=== PATIENT | male | born 1960 | race Two or more races ===

== ENCOUNTER 2019-07-20 10:49 | Observation (INO) | payer OTHER ==
[2019-07-20] MEDS ORDERED: ASPIRIN 81 MG PO STA (11:07)
[2019-07-20 11:27] LABS: Basophils % (A) 0 %; Eosinophils # (A) 0.1 k/uL (0-0.7); Eosinophils % (A) 2 %; HCT 45.4 % (39.0-53.0); HGB 14.9 gm/dL (13.0-17.5); Lymphocytes # (A) 1.4 k/uL (1.0-4.8); Lymphocytes % (A) 23 %; MCH 32.4 pg (25.0-35.0); MCHC 32.8 g/dL (31.0-37.0); MCV 98.9 fL (80.0-100.0); Mean Platelet Volume 7.9; Monocytes # (A) 0.3 k/uL (0-1.0); Monocytes % (A) 5 %; Neutrophils # (A) 4.1 k/uL (1.3-7.7); Neutrophils % (A) 68 %; Platelet Count 207 k/uL (150-450); RBC 4.59 m/uL (4.30-5.90); RDW 12.6 % (11.5-15.5)
--- NOTE | 2019-07-20 11:32 | ED ---
General Adult HPI - General Chief complaint: Chest Pain Stated complaint: chest pain Time Seen by Provider: 07/20/19 11:04 Source: patient Mode of arrival: ambulatory Limitations: no limitations - History of Present Illness Initial comments: Dictation was produced using [employer] dictation software. please excuse any grammatical, word or spelling errors. Chief Complaint: 59-year-old male with no known comorbidities presents with chest pain. History of Present Illness: 59-year-old male over the last 3-4 days patient has been having increased frequency of chest pain. Patient states over the last 3-4 days to have approximately 10 episodes that last for minutes. She reports that the pain is substernal squeezing in nature. States that sometimes the pain will radiate down to his left upper extremity. No associated diaphoresis. There is some times where he would experience some nausea and shortness of breath. Patient denies any symptoms at this time. He was convinced by his family member to come to the emergency department for medical evaluation. Patient has not seen a primary care physician. He does not know if he has any medical problems. He does not take any medications. He is a daily tobacco user. The ROS documented in this emergency department record has been reviewed and confirmed by me. Those systems with pertinent positive or negative responses have been documented in the HPI. All other systems are other negative and/or noncontributory. PHYSICAL EXAM: General Impression: Alert and oriented x3, not in acute distress HEENT: Normocephalic atraumatic, extra-ocular movements intact, pupils equal and reactive to light bilaterally, mucous membranes moist. Cardiovascular: Heart regular rate and rhythm, S1&S2 audible, no murmurs, rubs or gallops Chest: Lungs clear to auscultation bilaterally, no rhonchi, no wheeze, no rales Abdomen: Bowel sounds present, abdomen soft, non-tender, non-distended, no organomegaly Musculoskeletal: Pulses present and equal in all extremities, no peripheral edema Motor: no focal deficits noted Neurological: CN II-XII grossly intact, no focal motor or sensory deficits noted Skin: Intact with no visualized rashes Psych: Normal affect and mood ED course: 59-year-old male presents with chest pain symptoms concerning for acute coronary syndrome. Patient denies any chest pain symptoms at this time. Vital signs upon arrival are within acceptable limits. EKG merely performed on upon arrival shows no signs of ST segment elevation myocardial infarction.Laboratory evaluation obtained. CBC, coag panel, metabolic panel is obtained. Cardiac enzymes negative. Chest x-ray shows no acute processes. There is however some degree of enlarged cardiomediastinal silhouette without any comparison for stability. Patient reevaluated bedside without any chest pain symptoms currently. Patient be admitted observation for surgical and cardiology consultation. EKG interpretation: Ventricular rate 74, normal sinus rhythm, MD interval 140, care is 96, QTC 435. No MD prolongation, no QTC prolongation, no ST or T-wave changes noted. Overall, this EKG is unremarkable - Related Data Home Medications Medication Instructions Recorded Confirmed No Known Home Medications 07/20/19 07/20/19 Allergies Allergy/AdvReac Type Severity Reaction Status Date / Time nitroglycerin AdvReac syncopal Verified 07/20/19 11:30 episode Review of Systems ROS Statement: Those systems with pertinent positive or pertinent negative responses have been documented in the HPI. ROS Other: All systems not noted in ROS Statement are negative. Past Medical History Past Medical History: No Reported History History of Any Multi-Drug Resistant Organisms: None Reported Additional Past Surgical History / Comment(s): facial reconstrucive surgery Past Psychological History: Anxiety, Bipolar Smoking Status: Current every day smoker Past Alcohol Use History: None Reported Past Drug Use History: None Reported General Exam Limitations: no limitations Course Vital Signs 07/20/19 07/20/19 07/20/19 10:49 11:00 11:19 Temperature 97.6 F Pulse Rate 78 76 81 Respiratory 18 18 18 Rate Blood Pressure 128/83 134/101 125/81 O2 Sat by Pulse 100 98 Oximetry 07/20/19 11:56 Temperature Pulse Rate 80 Respiratory 20 Rate Blood Pressure 131/80 O2 Sat by Pulse 97 Oximetry Medical Decision Making - Lab Data Result diagrams: 07/20/19 11:10 07/20/19 11:10 Lab Results 07/20/19 07/20/19 07/20/19 Range/Units 11:10 11:10 11:10 WBC 6.0 (3.8-10.6) k/uL RBC 4.59 (4.30-5.90) m/uL Hgb 14.9 (13.0-17.5) gm/dL Hct 45.4 (39.0-53.0) % MCV 98.9 (80.0-100.0) fL MCH 32.4 (25.0-35.0) pg MCHC 32.8 (31.0-37.0) g/dL RDW 12.6 (11.5-15.5) % Plt Count 207 (150-450) k/uL Neutrophils % 68 % Lymphocytes % 23 % Monocytes % 5 % Eosinophils % 2 % Basophils % 0 % Neutrophils # 4.1 (1.3-7.7) k/uL Lymphocytes # 1.4 (1.0-4.8) k/uL Monocytes # 0.3 (0-1.0) k/uL Eosinophils # 0.1 (0-0.7) k/uL Basophils # 0.0 (0-0.2) k/uL PT 9.6 (9.0-12.0) sec INR 0.9 (<1.2) APTT 22.9 (22.0-30.0) sec Sodium 136 L (137-145) mmol/L Potassium 4.0 (3.5-5.1) mmol/L Chloride 104 (98-107) mmol/L Carbon Dioxide 21 L (22-30) mmol/L Anion Gap 11 mmol/L BUN 16 (9-20) mg/dL Creatinine 0.88 (0.66-1.25) mg/dL Est GFR (CKD-EPI)AfAm >90 (>60 ml/min/1.73 sqM) Est GFR (CKD-EPI)NonAf >90 (>60 ml/min/1.73 sqM) Glucose 228 H (74-99) mg/dL Calcium 9.0 (8.4-10.2) mg/dL Magnesium 1.9 (1.6-2.3) mg/dL Total Bilirubin 0.6 (0.2-1.3) mg/dL AST 29 (17-59) U/L ALT 19 (4-49) U/L Alkaline Phosphatase 51 (38-126) U/L Troponin I (0.000-0.034) ng/mL Total Protein 6.7 (6.3-8.2) g/dL Albumin 3.8 (3.5-5.0) g/dL Lipase 136 (23-300) U/L 07/20/19 Range/Units 11:10 WBC (3.8-10.6) k/uL RBC (4.30-5.90) m/uL Hgb (13.0-17.5) gm/dL Hct (39.0-53.0) % MCV (80.0-100.0) fL MCH (25.0-35.0) pg MCHC (31.0-37.0) g/dL RDW (11.5-15.5) % Plt Count (150-450) k/uL Neutrophils % % Lymphocytes % % Monocytes % % Eosinophils % % Basophils % % Neutrophils # (1.3-7.7) k/uL Lymphocytes # (1.0-4.8) k/uL Monocytes # (0-1.0) k/uL Eosinophils # (0-0.7) k/uL Basophils # (0-0.2) k/uL PT (9.0-12.0) sec INR (<1.2) APTT (22.0-30.0) sec Sodium (137-145) mmol/L Potassium (3.5-5.1) mmol/L Chloride (98-107) mmol/L Carbon Dioxide (22-30) mmol/L Anion Gap mmol/L BUN (9-20) mg/dL Creatinine (0.66-1.25) mg/dL Est GFR (CKD-EPI)AfAm (>60 ml/min/1.73 sqM) Est GFR (CKD-EPI)NonAf (>60 ml/min/1.73 sqM) Glucose (74-99) mg/dL Calcium (8.4-10.2) mg/dL Magnesium (1.6-2.3) mg/dL Total Bilirubin (0.2-1.3) mg/dL AST (17-59) U/L ALT (4-49) U/L Alkaline Phosphatase (38-126) U/L Troponin I <0.012 (0.000-0.034) ng/mL Total Protein (6.3-8.2) g/dL Albumin (3.5-5.0) g/dL Lipase (23-300) U/L Disposition Clinical Impression: Chest pain Disposition: ADMITTED IP TO THIS [facility] Condition: Fair Referrals: None,Stated [Primary Care Provider] - 1-2 days Decision Time: 13:51
[2019-07-20 11:35] LABS: ALT 19 U/L (4-49); AST 29 U/L (17-59); African American GFR (CKD) >90 (>60 ml/min/1.73 sqM); Albumin 3.8 g/dL (3.5-5.0); Alkaline Phosphatase 51 U/L (38-126); Anion Gap 11 mmol/L; Blood Urea Nitrogen 16 mg/dL (9-20); Carbon Dioxide 21 mmol/L (22-30); Chloride 104 mmol/L (98-107); Glucose 228 mg/dL (74-99); Magnesium 1.9 mg/dL (1.6-2.3); Non-African American GFR(CKD) >90 (>60 ml/min/1.73 sqM); Sodium 136 mmol/L (137-145); Total Bilirubin 0.6 mg/dL (0.2-1.3); Total Protein 6.7 g/dL (6.3-8.2)
[2019-07-20 11:38] LABS: INR 0.9 (<1.2); Partial Thromboplastin Time 22.9 sec (22.0-30.0); Prothrombin Time 9.6 sec (9.0-12.0)
--- NOTE | 2019-07-20 11:55 | XR ---
EXAMINATION TYPE: XR chest 2V DATE OF EXAM: 07/20/2019 COMPARISON: NONE HISTORY: Chest pain. History of AR TECHNIQUE: Frontal and lateral views of the chest are obtained. FINDINGS: There is no focal air space opacity, pleural effusion, or pneumothorax seen. There is tort uosity of the thoracic aorta and mildly enlarged cardiomediastinal silhouette. The osseous structur es are intact. IMPRESSION: No acute pulmonary process. Mildly enlarged cardiomediastinal silhouette, no priors for comparison of stability.
[2019-07-20 15:04] VITALS: RESP 18
[2019-07-20 15:56] VITALS: BP 118/78; PULSE 62; TEMP 97.4
[2019-07-21] MEDS ORDERED: ASPIRIN 325 MG TAB PO SCH (09:00)
--- NOTE | 2019-07-21 23:40 | HP ---
HISTORY AND PHYSICAL CHIEF COMPLAINT: Chest pain. HISTORY OF PRESENT ILLNESS: The patient presented to the emergency room with chest pain which was fairly typical for angina. He was evaluated and admitted. Review of systems, past medical history, family history, and personal and social history could not be obtained. He signed out AMA. PHYSICAL EXAMINATION: Any details of his physical exam would come from the emergency room. He left before he was seen. DIAGNOSIS: Chest pain. PLAN: Would have been to do serial cardiac enzymes and EKGs with cardiac evaluation. MMODL / IJN: [id number] /
--- NOTE | 2019-07-22 12:44 | DS ---
DISCHARGE SUMMARY CHIEF COMPLAINT: Chest pain. HISTORY OF PRESENT ILLNESS AND PHYSICAL EXAM: Details of this man's history and physical can be found in his admitting summary but are incomplete because he signed out before he was seen. COURSE IN THE HOSPITAL: After he was admitted, he was only in the room a short period of time when he suddenly disappeared. FINAL DIAGNOSIS: Chest pain. OPERATIONS: None. CONSULTATIONS: None. KATHLEEN / JUSTIN: [id number] /
== END 2019-07-20 18:27 | disposition left against medical advice (07) ==
LOC: EC 10:49 → 1SOBS 13:43
PROVIDERS: ADMIT Family Medicine; ATTEND Family Medicine
DX: R07.9 Chest pain, unspecified (principal); F41.9 Anxiety disorder, unspecified; F31.9 Bipolar disorder, unspecified; F17.200 Nicotine dependence, unspecified, uncomplicated; Z53.29 Procedure and treatment not carried out because of patient's decision for other reasons; Z88.8 Allergy status to other drugs, medicaments and biological substances
CPT/HCPCS: 99285; 36415; 93005; 80053; 83690; 83735; 84484; 85025; 85610; 85730; 71046; G0378

== ENCOUNTER 2020-08-09 17:04 | Observation (INO) | payer OTHER ==
--- NOTE | 2020-08-09 17:10 | ED ---
General Adult HPI - General Chief complaint: Chest Pain Stated complaint: Chest pain Source: patient Mode of arrival: ambulatory Limitations: no limitations - History of Present Illness Initial comments: Patient presents the ED with his son for evaluation. Patient states that he developed left sided chest pain and dyspnea while at rest about an hour ago. Patient states that his symptoms began after he had a conversation with his father, which "didn't go well". Patient states that he feels very anxious, and he states that he has a history of anxiety. Patient states that he feels that his anxiety is contributing to his symptoms. Patient states that his pain is worse with inspiration. Patient denies trauma or injury, radiation of his pain, fever or chills, headache, focal numbness/weakness/neuro deficit, neck/arm/jaw/back pain, cough or cold symptoms, palpitations, dizziness, abdominal pain, nausea/vomiting/diarrhea, dysuria or urinary symptoms, leg or calf swelling or pain, or any other symptoms or complaints. Patient states that he took aspirin 325 mg PO prior to coming to the ED this evening. - Related Data Home Medications Medication Instructions Recorded Confirmed No Known Home Medications 07/20/19 07/20/19 Allergies Allergy/AdvReac Type Severity Reaction Status Date / Time nitroglycerin AdvReac syncopal Verified 08/09/20 17:06 episode Review of Systems ROS Statement: Those systems with pertinent positive or pertinent negative responses have been documented in the HPI. ROS Other: All systems not noted in ROS Statement are negative. Past Medical History Past Medical History: Hyperlipidemia, Myocardial Infarction (NM) Additional Past Medical History / Comment(s): cocaine induced NM, history of hep C- completed treatment. History of Any Multi-Drug Resistant Organisms: None Reported Additional Past Surgical History / Comment(s): facial reconstrucive surgery, Past Psychological History: Anxiety, Bipolar Smoking Status: Current every day smoker Past Alcohol Use History: None Reported Past Drug Use History: Cocaine General Exam Limitations: no limitations General appearance: alert, anxious Head exam: Present: atraumatic, normocephalic Eye exam: Present: normal appearance, EOMI ENT exam: Present: mucous membranes moist Neck exam: Present: other (Trachea is in midline) Respiratory exam: Present: normal lung sounds bilaterally. Absent: respiratory distress, wheezes, rales, rhonchi, stridor, chest wall tenderness Cardiovascular Exam: Present: regular rate, normal rhythm, normal heart sounds, other (Normal radial pulses bilaterally) GI/Abdominal exam: Present: soft. Absent: distended, tenderness, guarding Extremities exam: Present: other (Negative Homans sign bilaterally). Absent: tenderness, pedal edema, calf tenderness Neurological exam: Present: alert, oriented X3. Absent: motor sensory deficit Psychiatric exam: Present: anxious Skin exam: Present: warm, dry, intact, normal color Course Vital Signs 08/09/20 08/09/20 08/09/20 17:05 17:19 18:50 Temperature 98.0 F Pulse Rate 82 73 Pulse Rate [ 89 Compressor Repairer ] Respiratory 18 20 16 Rate Blood Pressure 133/78 140/87 O2 Sat by Pulse 97 97 Oximetry - Reevaluation(s) Reevaluation #1: 08/09/20 19:40 Patient states that his chest pain/symptoms have now improved, and he states that he feels much better. Patient denies development of any new symptoms while in the ED. Patient remains alert and breathing comfortably with a normal room air oxygen saturation. Patient and son are aware the patient's test results, and they both agree with hospital admission at this time. 08/09/20 20:10 Case, H&P, test results and ED management thus far were discussed with Dr. Meier. He accepts hospital admission. He recommends cardiology consultation. He has no further recommendations at this time. EKG Findings - EKG Comments: EKG Findings:: Normal sinus rhythm, ventricular rate of 75 bpm, normal SC and QRS intervals, normal QT interval, normal axis, incomplete right bundle branch block, left anterior fascicular block, no ST or T-wave abnormality Medical Decision Making - Medical Decision Making Patient's chest pain has improved while in the ED. Patient's CT angiography chest is negative for pulmonary embolism. Patient's troponin is negative. Patient's EKG does not show any acute ischemic findings. Will admit the patient to the hospital for further evaluation and cardiac monitoring. Dr. Meier has accepted hospital admission. - Lab Data Result diagrams: 08/09/20 17:25 08/09/20 17:25 Lab Results 08/09/20 08/09/20 08/09/20 Range/Units 17:25 17:25 17:25 WBC 8.5 (3.8-10.6) k/uL RBC 4.75 (4.30-5.90) m/uL Hgb 15.8 (13.0-17.5) gm/dL Hct 46.2 (39.0-53.0) % MCV 97.3 (80.0-100.0) fL MCH 33.2 (25.0-35.0) pg MCHC 34.1 (31.0-37.0) g/dL RDW 12.1 (11.5-15.5) % Plt Count 204 (150-450) k/uL MPV 7.5 Neutrophils % 68 % Lymphocytes % 16 % Monocytes % 10 % Eosinophils % 4 % Basophils % 1 % Neutrophils # 5.8 (1.3-7.7) k/uL Lymphocytes # 1.4 (1.0-4.8) k/uL Monocytes # 0.9 (0-1.0) k/uL Eosinophils # 0.3 (0-0.7) k/uL Basophils # 0.1 (0-0.2) k/uL PT 9.5 (9.0-12.0) sec INR 0.9 (<1.2) APTT 23.6 (22.0-30.0) sec D-Dimer 0.60 H (<0.60) mg/L FEU Sodium 137 (137-145) mmol/L Potassium 4.3 (3.5-5.1) mmol/L Chloride 103 (98-107) mmol/L Carbon Dioxide 26 (22-30) mmol/L Anion Gap 8 mmol/L BUN 16 (9-20) mg/dL Creatinine 1.23 (0.66-1.25) mg/dL Est GFR (CKD-EPI)AfAm 74 (>60 ml/min/1.73 sqM) Est GFR (CKD-EPI)NonAf 64 (>60 ml/min/1.73 sqM) Glucose 93 (74-99) mg/dL Calcium 9.1 (8.4-10.2) mg/dL Magnesium 2.0 (1.6-2.3) mg/dL Total Bilirubin 0.4 (0.2-1.3) mg/dL AST 20 (17-59) U/L ALT 21 (4-49) U/L Alkaline Phosphatase 61 (38-126) U/L Troponin I (0.000-0.034) ng/mL NT-Pro-B Natriuret Pep pg/mL Total Protein 7.2 (6.3-8.2) g/dL Albumin 4.2 (3.5-5.0) g/dL 08/09/20 08/09/20 Range/Units 17:25 17:25 WBC (3.8-10.6) k/uL RBC (4.30-5.90) m/uL Hgb (13.0-17.5) gm/dL Hct (39.0-53.0) % MCV (80.0-100.0) fL MCH (25.0-35.0) pg MCHC (31.0-37.0) g/dL RDW (11.5-15.5) % Plt Count (150-450) k/uL MPV Neutrophils % % Lymphocytes % % Monocytes % % Eosinophils % % Basophils % % Neutrophils # (1.3-7.7) k/uL Lymphocytes # (1.0-4.8) k/uL Monocytes # (0-1.0) k/uL Eosinophils # (0-0.7) k/uL Basophils # (0-0.2) k/uL PT (9.0-12.0) sec INR (<1.2) APTT (22.0-30.0) sec D-Dimer (<0.60) mg/L FEU Sodium (137-145) mmol/L Potassium (3.5-5.1) mmol/L Chloride (98-107) mmol/L Carbon Dioxide (22-30) mmol/L Anion Gap mmol/L BUN (9-20) mg/dL Creatinine (0.66-1.25) mg/dL Est GFR (CKD-EPI)AfAm (>60 ml/min/1.73 sqM) Est GFR (CKD-EPI)NonAf (>60 ml/min/1.73 sqM) Glucose (74-99) mg/dL Calcium (8.4-10.2) mg/dL Magnesium (1.6-2.3) mg/dL Total Bilirubin (0.2-1.3) mg/dL AST (17-59) U/L ALT (4-49) U/L Alkaline Phosphatase (38-126) U/L Troponin I <0.012 (0.000-0.034) ng/mL NT-Pro-B Natriuret Pep 22 pg/mL Total Protein (6.3-8.2) g/dL Albumin (3.5-5.0) g/dL - Radiology Data Radiology results: report reviewed (Chest x-ray: No acute cardiopulmonary process; CT angiography chest: No evident pulmonary embolism, correlate to exclude pneumonia, there are likely subsegmental atelectatic changes, indeterminate liver lesion) Disposition Clinical Impression: Chest pain, Anxiety Disposition: ADMITTED IP TO THIS HOSP Condition: Stable Is patient prescribed a controlled substance at d/c from ED?: No Referrals: None,Stated [Primary Care Provider] - 1-2 days Time of Disposition: 20:12
[2020-08-09] MEDS ORDERED: LORazepam 2 MG/ML INJ IV STA (17:22)
[2020-08-09 17:34] LABS: Basophils # (A) 0.1 k/uL (0-0.2); Basophils % (A) 1 %; Eosinophils # (A) 0.3 k/uL (0-0.7); Eosinophils % (A) 4 %; HCT 46.2 % (39.0-53.0); HGB 15.8 gm/dL (13.0-17.5); Lymphocytes # (A) 1.4 k/uL (1.0-4.8); Lymphocytes % (A) 16 %; MCH 33.2 pg (25.0-35.0); MCHC 34.1 g/dL (31.0-37.0); MCV 97.3 fL (80.0-100.0); Mean Platelet Volume 7.5; Monocytes # (A) 0.9 k/uL (0-1.0); Monocytes % (A) 10 %; Neutrophils # (A) 5.8 k/uL (1.3-7.7); Neutrophils % (A) 68 %; Platelet Count 204 k/uL (150-450); RBC 4.75 m/uL (4.30-5.90); RDW 12.1 % (11.5-15.5); WBC 8.5 k/uL (3.8-10.6)
[2020-08-09 17:43] LABS: Albumin 4.2 g/dL (3.5-5.0); Calcium 9.1 mg/dL (8.4-10.2); Potassium 4.3 mmol/L (3.5-5.1); Total Bilirubin 0.4 mg/dL (0.2-1.3); Total Protein 7.2 g/dL (6.3-8.2)
--- NOTE | 2020-08-09 17:47 | XR ---
EXAMINATION TYPE: XR chest 2V DATE OF EXAM: 08/09/2020 COMPARISON: 07/20/2019 HISTORY: Chest pain and shortness of breath. TECHNIQUE: Frontal and lateral views of the chest are obtained. FINDINGS: There is no focal air space opacity, pleural effusion, or pneumothorax seen. The cardiac silhouette size is within normal limits. The osseous structures are intact. IMPRESSION: No acute cardiopulmonary process.
[2020-08-09 18:00] LABS: INR 0.9 (<1.2); Partial Thromboplastin Time 23.6 sec (22.0-30.0); Prothrombin Time 9.5 sec (9.0-12.0)
[2020-08-09 18:08] LABS: D-Dimer 0.6 mg/L FEU (<0.60)
[2020-08-09] MEDS ORDERED: SODIUM CHLORIDE 0.9% 1,000 ML IV ONE (18:10)
--- NOTE | 2020-08-09 19:41 | CT ---
EXAMINATION TYPE: CT chest angio for PE DATE OF EXAM: 08/09/2020 COMPARISON: Chest x-ray same date HISTORY: chest pain CT DLP: 427 mGycm Automated exposure control for dose reduction was used. CONTRAST: CT Chest for pulmonary embolism performed with with IV Contrast, patient injected with 75cc mL of Iso mariana 370. FINDINGS: LUNGS: The lungs show some dependent atelectatic changes, some platelike atelectasis present somewhat wedge-shaped in the periphery of the lingula posteriorly, some patchy density also present within th e lingula more anteriorly, anterior aspect of the right middle lobe shows some probable platelike ate lectasis change, apical emphysematous changes are present, there is no concerning parenchymal mass or nodule identified. There is no pleural effusion or pneumothorax seen. The tracheobronchial tree i s patent. MEDIASTINUM: There is satisfactory enhancement of the pulmonary artery and its branches, there is no CT evidence for pulmonary embolism. There are no greater than 1 cm hilar or mediastinal lymph nodes. No pericardial effusion is seen. AORTA: No additional significant abnormality is seen. OTHER: There is hiatal hernia. 1 cm low dense focus in the right lobe liver, axial image #112 is inde terminate. IMPRESSION: No evident pulmonary embolism. Correlate to exclude pneumonia, there are likely subsegmental atelecta tic changes. Indeterminate liver lesion.
[2020-08-09] MEDS ORDERED: ACETAMINOPHEN TAB 325 MG TAB PO PRN (22:41)
[2020-08-10 07:05] VITALS: BP 129/82; PULSE 79; RESP 20; TEMP 98.1
[2020-08-10] MEDS ORDERED: buPROPion XL 300 MG TAB.ER.24H PO SCH (09:00)
[2020-08-10] MEDS ORDERED: risperiDONE 1 MG TAB PO SCH (09:00)
[2020-08-10] MEDS ORDERED: PANTOPRAZOLE 40 MG TABLET PO SCH (09:00)
[2020-08-10] MEDS ORDERED: ATOMOXETINE HCL 25 MG PO SCH (09:00)
[2020-08-10 09:02] LABS: Basophils # (A) 0.03 X 10*3/uL (0.00-0.10); Basophils % (A) 0.3 %; Eosinophils # (A) 0.15 X 10*3/uL (0.04-0.35); Eosinophils % (A) 1.7 %; HCT 42.9 % (39.6-50.0); HGB 14.1 g/dL (13.0-17.0); Lymphocytes # (A) 1.31 X 10*3/uL (0.90-5.00); Lymphocytes % (A) 14.5 %; MCH 31.9 pg (27.0-32.0); MCHC 32.9 g/dL (32.0-37.0); MCV 97.1 fL (80.0-97.0); Mean Platelet Volume 10.6 fL (9.5-12.2); Monocytes # (A) 1.18 X 10*3/uL (0.20-1.00); Monocytes % (A) 13.1 %; Neutrophils # (A) 6.31 X 10*3/uL (1.80-7.70); Platelet Count 194 X 10*3/uL (140-440); RBC 4.42 X 10*6/uL (4.40-5.60); RDW 12.3 % (11.5-14.5); WBC 9.02 X 10*3/uL (4.50-10.00)
[2020-08-10 09:46] LABS: African American GFR (CKD) 84.1 (60.0-200.0); Albumin 3.9 g/dL (3.80-4.90); Albumin/Globulin Ratio 1.86 (1.60-3.17); Anion Gap 6.5 mmol/L (4.00-12.00); BUN/Creat Ratio 11.82 Ratio (12.00-20.00); Calcium 8.4 mg/dL (8.7-10.3); Carbon Dioxide 27.5 mmol/L (21.6-31.8); Globulin 2.1 g/dL (1.6-3.3); Non-African American GFR(CKD) 72.6 (60.0-200.0); Potassium 4.3 mmol/L (3.5-5.5); Total Bilirubin 0.6 mg/dL (0.2-1.2)
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
[2020-08-10 14:23] LABS: Chol/HDL Ratio 5.76; LDL Cholesterol,Calculated 154.8 mg/dL (0.0-131.0); VLDL Calculation 26.2 mg/dL (5.00-40.00)
--- NOTE | 2020-08-10 16:18 | HP ---
HISTORY AND PHYSICAL HISTORY AND PHYSICAL AND DISCHARGE SUMMARY: DATE OF SERVICE: 08/10/2020 CHIEF COMPLAINTS: Chest pain. HISTORY OF PRESENT ILLNESS: This is a 63-year-old gentleman with a past medical history of hyperlipidemia, myocardial infarction, history of cocaine induced CA, history hepatitis C, was complaining of chest pain. The pain was mostly on the left side with chest pains and shortness of breath and the patient also had some anxiety. Patient came to [facility]. Initial workup was negative. Cardiology saw the patient and recommended outpatient followup. EKG was normal. The patient also had a chest CTA which I reviewed personally which showed no evidence of any pulmonary embolism. Chest x-ray showed some increased bronchovascular markings. There is no history any fever, rigors, chills. No history of headache, loss of consciousness, seizures. PAST MEDICAL HISTORY: History of hyperlipidemia, history of myocardial infarction. Cocaine induced CA. MEDICATIONS ARE: Risperdal, Protonix, Naprosyn, Tums, Wellbutrin, Strattera. ALLERGIES: NITROGLYCERIN. FAMILY HISTORY: No history of heart disease or strokes in the family. SOCIAL HISTORY: History of cocaine in the past. History of smoking currently. REVIEW OF SYSTEMS: CARDIOVASCULAR: As mentioned earlier. RESPIRATORY: As mentioned earlier. GI: As mentioned earlier. : No dysuria. NERVOUS SYSTEM: No numbness or weakness. ALLERGY/IMMUNOLOGY: No asthma or hayfever. MUSCULOSKELETAL: As mentioned earlier. HEMATOLOGY: No history of anemia. ENDOCRINE: No history of diabetes or hypothyroidism. CONSTITUTIONAL: As mentioned earlier. DERMATOLOGY: Negative. RHEUMATOLOGY: Negative. PSYCHIATRY: As mentioned earlier. PHYSICAL EXAMINATION: GENERAL: Patient is alert and oriented times three. VITAL SIGNS: Pulse 79, blood pressure 110/82, respirations 20, temperature 98.1, pulse ox 97% on room air. HEENT: Conjunctivae normal. Oral mucosa moist. NECK: No jugular venous distention. No carotid bruits. No lymph node enlargement. RESPIRATORY: Breath sounds diminished at the bases. A few scattered rhonchi and crackles. HEART: S1 and S2, muffled. ABDOMEN: Soft, no tenderness. EXTREMITIES: No edema, no swelling. NERVOUS: Higher functions as mentioned earlier. Moves all four limbs. No focal motor or sensory deficits. LYMPHATICS: No lymph nodes palpable in the neck or axillae. SKIN: No rashes. JOINTS: No active deforming arthropathy. LABS: CBC within normal limits and cholesterol is 219. ASSESSMENT: 1. Chest pain possible unstable angina. Myocardial infarction ruled out. 2. History of anxiety. 3. History of possible bronchitis. 4. Hyperlipidemia. 5. Myocardial infarction. 6. History of cocaine induced myocardial infarction. 7. History of nicotine dependence. 8. Anxiety and bipolar. 9. History of cocaine. 10.FULL CODE. RECOMMENDATIONS AND DISCUSSION: In this 60-year-old gentleman who presented with multiple complex medical issues, we will monitor the patient closely. Continue the current management and symptomatic treatment. Cardiology recommended the patient be discharged and follow up in the outpatient setting. I would recommend outpatient stress test and follow up closely with primary physician. DISCHARGE INSTRUCTIONS: Discharge diet is cardiac. Activity is limited until followup. Follow up with Dr. Sherman in 2-3 days. Follow up with Dr. Horvath as advised. MEDICATIONS: Continue with Naprosyn, Protonix 20 daily, Risperdal 1 mg p.o. daily, Strattera 25 mg daily, Tums 500 mg daily, Wellbutrin XL 300 mg p.o. daily, Levaquin 500 mg daily for 3 days. MMODL / IJN: [id number] /
== END 2020-08-10 12:06 | disposition home or self-care (01) ==
LOC: EC 17:04 → 6NMEDSUR 20:12
PROVIDERS: ADMIT Hospitalist; ATTEND Hospitalist
DX: R07.89 Other chest pain (principal); R06.02 Shortness of breath; R42 Dizziness and giddiness; E78.5 Hyperlipidemia, unspecified; I45.2 Bifascicular block; E78.00 Pure hypercholesterolemia, unspecified; F31.9 Bipolar disorder, unspecified; F41.9 Anxiety disorder, unspecified; F17.210 Nicotine dependence, cigarettes, uncomplicated; Z79.1 Long term (current) use of non-steroidal anti-inflammatories (NSAID); Z79.899 Other long term (current) drug therapy; Z87.898 Personal history of other specified conditions; Z88.1 Allergy status to other antibiotic agents; I25.2 Old myocardial infarction; Z86.19 Personal history of other infectious and parasitic diseases
CPT/HCPCS: 93005 ×2; 96361; 96374; 99285; 36415; 94760; 85379; 83880; 80061; 80053 ×2; 83735; 84484; 85025 ×2; 85610; 85730; 87635; 71046; 71275; G0378 ×2; J2060; Q9967